=== PATIENT | male | born 1945 | race Caucasian/White ===

== ENCOUNTER 2019-05-23 10:05 | Day surgery (SDC) | payer OTHER ==
[2019-05-21 15:57] VITALS: BMI 30.1
[2019-05-23] MEDS ORDERED: BUPIVACAINE HCL/PF 2.5 MG/ML - 30 ML VIAL IJ ONE (13:26)
[2019-05-23] MEDS ORDERED: PROPOFOL 20 ML ONE (13:29)
[2019-05-23] MEDS ORDERED: BUPIVACAINE HCL/PF 0.25% (2.5MG/ML) 10 ML VIAL IJ ONE ×2 (14:21→14:35)
[2019-05-23] MEDS ORDERED: ONDANSETRON 4 MG/2 ML VIAL ONE (14:57)
[2019-05-23] MEDS ORDERED: ONDANSETRON 4 MG/2 ML VIAL IVPUSH PRN (15:01)
[2019-05-23] MEDS ORDERED: PROMETHAZINE HCL 25 MG/1 ML VIAL IVPUSH PRN (15:01)
[2019-05-23] MEDS ORDERED: oxyCODONE HCL 5 MG TABLET PO PRN ×2 (15:01)
[2019-05-23 15:08] VITALS: TEMP 98.7
[2019-05-23] MEDS ORDERED: oxyCODONE HCL 5 MG TABLET ONE (16:00)
[2019-05-23 16:30] VITALS: BP 137/70; PULSE 74
--- NOTE | 2019-05-23 16:46 | OP ---
DATE OF OPERATION: 05/23/2019 Done at [facility] SURGEON: Dixon Justin MD RELATIONSHIP CONSULTANT: MATT Belle PREOPERATIVE DIAGNOSES: 1. Right knee medial and lateral meniscal tear. 2. Right knee cartilage injury. 3. Right knee synovitis. POSTOPERATIVE DIAGNOSES: 1. Right knee medial and lateral meniscal tear. 2. Right knee cartilage injury. 3. Right knee synovitis. PROCEDURE: 1. Right knee arthroscopy with partial meniscectomy, medial and lateral meniscus, CPT code 06436. 2. Right knee arthroscopy with chondroplasty and abrasion-plasty, CPT code 29407. 3. Right knee arthroscopy with synovectomy, CPT code 24826. FINDINGS: 1. Medial meniscus [id number] horn tear inner 1/3. 2. Lateral meniscus posterior horn tear. 3. Synovitis patellofemoral medial and lateral notch area. 4. Diffuse central grade 3-4 changes medial and femoral condyle tibial plateau. 5. ACL and PCL intact. 6. Diffuse grade 1-2 changes lateral joint line, femoral condyle and tibial plateau. 7. Central grade 2-3 cartilage injury patella with central grade 4 changes, patella, patellofemoral trochlea with large medial plica. PROCEDURE: Informed consent was obtained. The patient came to the operating room, where the lower extremity was prepped and draped in a sterile fashion. A tourniquet was placed on the upper thigh, but not inflated. Using standard arthroscopic technique, a lateral incision and portal was made to allow for introduction of the camera into the suprapatellar bursa. This was then taken to the medial joint line, where under direct visualization, a medial incision and portal was made. Excessive synovium noted in the medial, lateral and patellofemoral and notch area was removed by an upbiter, shaver and Bovie cautery. This was found to bring in inflammatory tissue into the joint surface, a source of pain and dysfunction. Probing of the medial and lateral meniscus found tears, as described in the findings. These were removed with the upbiter and shaver and taken back to a stable rim. Grade 2 to 3 degenerative changes were treated with a chondroplasty, removing all flaking surfaces with low-setting Bovie along the periphery to prevent further flaking. Grade 4 changes, as noted, were treated with an abrasoplasty, creating a bleeding surface at the bone/cartilage interface. Aggressive debridement with shaver/nahun created bleeding surface. Micro fracture also done when indicated in findings. All areas of the knee were once again reexamined. The knee was then drained and a single suture was placed in all portals. A sterile dressing was placed and the patient was transferred to the recovery room without complication. The PA listed above was present and assisted at surgery. Their presence was absolutely medically necessary for the completion of the procedure. They helped hold the arthroscopy, pass instruments (and implants when indicated) and the procedure could not have been completed without their assistance. DIXON JUSTIN M.D. [id number]
--- NOTE | 2019-05-28 13:34 | PATH ---
Surgical Pathology Report Patient Name: MALGORZATA ZARATE [facility]. Rec. #: [id number] /Age/Gender: 1945 (Age: 74) / M Account: [id number] Location: [facility] Taken: 05/23/2019 Received: 05/23/2019 Reported: 05/28/2019 Physicians: Dixon Copeland M.D. Specimen(s) Received RIGHT KNEE SHAVINGS Clinical History Right knee derangement Final Diagnosis KNEE, RIGHT, ARTHROSCOPIC SHAVINGS: FIBROSYNOVIAL TISSUE, CARTILAGE AND SCANT BONE. Electronically Signed Denisa Yañez M.D. Gross Description Received in formalin, labeled "right knee shavings," is a 5.0 x 4.5 x 0.3 cm. aggregate of nur-yellow soft tissue fragments. A dental detail representative portion is submitted in one cassette. 05/26/201905/26/2019
== END 2019-05-23 16:36 | disposition home or self-care (01) ==
LOC: FASU 10:05
PROVIDERS: ATTEND Orthopaedic Surgery
PROC: 0SBC4ZZ Excision of Right Knee Joint, Percutaneous Endoscopic Approach (ICD-10-PCS; 2019-05-23)
PROC: 0SBC4ZZ Excision of Right Knee Joint, Percutaneous Endoscopic Approach (ICD-10-PCS; 2019-05-23)
PROC: 0SBC4ZZ Excision of Right Knee Joint, Percutaneous Endoscopic Approach (ICD-10-PCS; principal; 2019-05-23 14:15)
DX: S83.241A Other tear of medial meniscus, current injury, right knee, initial encounter (principal); S83.281A Other tear of lateral meniscus, current injury, right knee, initial encounter; S83.8X1A Sprain of other specified parts of right knee, initial encounter; M65.861 Other synovitis and tenosynovitis, right lower leg; X58.XXXA Exposure to other specified factors, initial encounter; Y93.9 Activity, unspecified; Y92.9 Unspecified place or not applicable
CPT/HCPCS: 82962; 88304-TC; 94760